=== PATIENT | female | born 1975 | race African-American/Black ===

== ENCOUNTER 2016-09-26 16:28 | Emergency (ER) | payer OTHER ==
--- NOTE | ~2016-09-26 | CR282 ---
[facility]. [facility] A Service of [facility] & [facility] RADIOLOGY TEXT RESULTS PATIENT: REDDY GO LOCATION: SED : 71 UNIT #: [id number] AGE: [address]: Ruby Fox APRN SEX: F ORDER DR: [id number] [place] [id number] E MR#: [id number] Acc #: [id number] NAME: REDDY GO : 1975 SEX: F STUDY DATE/TIME: 09/26/2016 16:23 UNIT: SED ROOM: STUDY DESCRIPTION: CR Wrist Min 3 View Rt Attending Physician: Ruby Fox A.P.R.N. Ordering Physician: Ruby Fox A.P.R.N. MEDICAL IMAGING REPORT This report is preliminary unless electronic signature is present. EXAM Right wrist 3 views HISTORY Wrist pain for 2 days. No injury. FINDINGS Wrist evaluation in multiple projections shows normal mineralization of the bony structures about the wrist and satisfactory articular relationship of the radius and ulna to the proximal carpal row and of the distal carpal segments to the metacarpal bases. There is no indication of fracture or dislocation, and no soft tissue radiopaque foreign body is present. No congenital defects are apparent. IMPRESSION Normal wrist. Dictated by... Reji Cobos M.D. THIS IS AN ELECTRONICALLY VERIFIED REPORT Reji Cobos M.D. at 09/28/2016 3:28 PM DFL/saleem TD: 09/27/2016 07:11 JOB #: [id number] MEDICAL IMAGING REPORT
[~2016-09-26 16:28] MED LIST: BACTRIM DS TABL1 TA1 PO; BENTYL20 M1 PO; DOCUSATE SODIU100 MG PO; FLAGYL PO; HYDROCODON-ACE1 EA12 PO; IBUPROFEN600 MG PO; LACTULOSE10 G/15 M1 PO; LACTULOSE10 G/15 M4 PO; LORTAB 5/500 TA1 TA2 PO; LORTAB 7.5-3251 EACH PO; NAPROSYN-EC500 M1 PO; NAPROXEN PO; NO MEDICATIONS; PREDNISONE PO; PYRIDIUM PO; VOLTAREN75 MG PO; ZITHROMAX PO; ZOFRAN ODT4 MG PO; ZOFRAN2 MG/M1 PO
[2016-10-19] MEDS ORDERED: NO MEDICATIONS (07:39)
== END 2016-09-26 17:50 | disposition home or self-care (01) ==
LOC: SED 16:28
DX: M77.9 Enthesopathy, unspecified (principal); Z88.1 Allergy status to other antibiotic agents; Z88.0 Allergy status to penicillin
CPT/HCPCS: 29125; 73110; 99283

== ENCOUNTER 2016-10-19 07:45 | Emergency (ER) | payer OTHER ==
--- NOTE | ~2016-10-19 | CT4 ---
[facility] A Service of [facility] & [facility] RADIOLOGY TEXT RESULTS PATIENT: REDDY GO LOCATION: SED : 71 UNIT #: [id number] AGE: [address]: Mirza Cox MD SEX: F ORDER DR: [id number] [address] [address] [id number] E MR#: [id number] Acc #: [id number] NAME: REDDY GO : 1975 SEX: F STUDY DATE/TIME: 10/19/2016 8:39 UNIT: SED ROOM: STUDY DESCRIPTION: CT Abd and Pelv Wo Cont Attending Physician: Mirza Cox M.D. Ordering Physician: Mirza Cox M.D. Primary Care Physician: Primary Care Physician No MEDICAL IMAGING REPORT This report is preliminary unless electronic signature is present. EXAM CT abdomen and pelvis without contrast INDICATION Stomach pain and bleeding for 3 days. Patient reports it is in the left lower quadrant. She also apparently has had vaginal bleeding which is abnormal for her. TECHNIQUE Axial CT images were obtained from the dome of the diaphragm through the symphysis pubis. No oral or intravenous contrast material was administered. This CT examination was performed with one or more of the following radiation dose reduction techniques: automatic exposure control, adjustment of mA and/or kV according to patient size, and iterative reconstruction. FINDINGS Images through the lung bases are clear. Liver, gallbladder appear normal. Right kidney and adrenal glands, as well as the spleen, stomach, proximal small bowel and pancreas are all normal. 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 Appendix is not clearly identified but I do not see a dilated tubular structure or soft tissue stranding within the right lower quadrant to suggest acute appendicitis. Uterus appears unremarkable for a 40-year-old woman. No hydronephrosis of the pelvic kidney is seen. There is a right ovarian cyst measuring up to 3.9 x 3.0 cm. There is a small amount of free fluid seen within the pelvis but this certainly can be a normal finding in a 40-year-old woman. No aggressive osseous abnormalities are seen. There is no evidence of mechanical bowel obstruction. A fairly extensive fecal burden is seen throughout the colon. Correlation with any history of constipation is recommended. IMPRESSION. 1. 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 There is no evidence of obstruction. [facility] A Service of [facility] RADIOLOGY TEXT RESULTS PATIENT: REDDY GO LOCATION: [facility] : 71 UNIT #: [id number] AGE: [address]: Mirza Cox MD SEX: F ORDER DR: 2. Patient does have a fairly extensive fecal burden seen throughout the colon. Correlation with any history of constipation is recommended. 3. Right ovarian cyst measuring up to 3.9 x 3 cm. Suggest a followup pelvic ultrasound in 6 weeks to document resolution or stability. Please see the body of the report for any other additional incidental findings. Dictated by... Jerrica Cerrato M.D. THIS IS AN ELECTRONICALLY VERIFIED REPORT Jerrica Cerrato M.D. at 10/19/2016 3:45 PM TANJA/saleem TD: 10/19/2016 12:05 JOB #: [id number] MEDICAL IMAGING REPORT Page 1 of 1
[2016-10-19 08:15] LABS: BASOPHIL# 0.1 X10e3 (0-0.3); DIFF IND NO; EOSINOPHIL# 0.1 X10e3 (0-0.7); EOSINOPHIL% 1.9 % (0.0-7.0); HEMATOCRIT 33.2 % (35.0-45.0); LYMPHOCYTE# 0.5 X10e3 (1.0-3.5); LYMPHOCYTE% 9.5 % (17.0-45.0); MEAN CELL VOLUME 91.8 FL (83-96); MEAN CORPUSCULAR HEMOGLOBIN 30.3 PG (28-34); MEAN PLATELET VOLUME 8.4 FL (6.5-11.5); MONOCYTE# 0.6 X10e3 (0-1.0); NEUTROPHIL# 4.3 X10e3 (1.5-7.1); NEUTROPHIL% 75.6 % (40-75); PLATELET COUNT 225 X10e3 (140-420); RED BLOOD COUNT 3.62 X10e (3.90-5.30); RED CELL DISTRIBUTION WIDTH 14.1 % (11.0-15.5); WHITE BLOOD COUNT 5.7 X10e3 (4.0-10.5)
[2016-10-19 08:40] LABS: BILIRUBIN, DIRECT 0.1 mg/dL (0.0-0.2); BILIRUBIN,INDIRECT 0.4 mg/dL (0.0-0.9); BILIRUBIN,TOTAL 0.5 mg/dL (0.2-2.0); BUN/CREATININE RATIO 11.66; CALCIUM SERUM 8.7 mg/dL (8.4-10.2); CREATININE SERUM 0.6 mg/dL (0.6-1.4); GLOM FILT RATE Estimated 130.3 mL/min (>60); POTASSIUM 3.4 mmol/L (3.5-5.1); PROTEIN TOTAL SERUM 6.8 g/dL (6.0-8.3)
[2016-10-19 09:11] LABS: URINE SOURCE CLEAN CATCH
[2016-10-19 09:13] LABS: URINE APPEARANCE TURBID; URINE BILIRUBIN POS (NEG); URINE BLOOD 3+ (NEG); URINE COLOR RED; URINE GLUCOSE NEG (NORM); URINE KETONE TRACE (NEG); URINE LEUKOCYTE ESTERASE NEG (NEG); URINE NITRATE POS (NEG); URINE PH 6.5 (5-8); URINE PROTEIN 3+ (NEG); URINE SPECIFIC GRAVITY >=1.030 (1.003-1.035)
[2016-10-19 09:14] LABS: MICRO INDICATED? YES
[2016-10-19 09:17] LABS: URINE RBC INNUM /[HPF] (0-2)
[2016-10-19 09:18] LABS: CULTURE INDICATED? YES; URINE BACTERIA 4+ (NEG); URINE SQUAMOUS EPITHELIAL CELL MANY /[HPF]; URINE WBC 100-200 /[HPF] (0-5)
== END 2016-10-19 09:20 | disposition home or self-care (01) ==
LOC: SED 07:45
PROVIDERS: Emergency Medicine
DX: N83.201 Unspecified ovarian cyst, right side (principal); Z88.0 Allergy status to penicillin
CPT/HCPCS: 36415; 74176; 80048; 80076; 81003; 82150; 83690; 84703; 85025; 87086; 99284

== ENCOUNTER 2016-11-15 20:53 | Emergency (ER) | payer OTHER ==
[2016-11-15 20:22] LABS: URINE SOURCE CLEAN CATCH
[2016-11-15 20:24] LABS: MICRO INDICATED? YES; URINE APPEARANCE CLEAR; URINE BILIRUBIN NEG (NEG); URINE BLOOD 3+ (NEG); URINE COLOR YELLOW; URINE GLUCOSE NEG (NORM); URINE KETONE NEG (NEG); URINE LEUKOCYTE ESTERASE NEG (NEG); URINE NITRATE NEG (NEG); URINE PH 6.5 (5-8); URINE PROTEIN TRACE (NEG); URINE UROBILINOGEN 0.2 MG/DL (NORM)
[2016-11-15 20:25] LABS: CULTURE INDICATED? NO; URINE BACTERIA NEG (NEG); URINE MUCUS PRESENT; URINE SQUAMOUS EPITHELIAL CELL OCCAS /[HPF]; URINE TRANSITIONAL EPI CELLS FEW /[HPF]
== END 2016-11-16 20:42 | disposition home or self-care (01) ==
LOC: SED 20:53
PROVIDERS: Physician Assistant
DX: N83.209 Unspecified ovarian cyst, unspecified side (principal); R10.2 Pelvic and perineal pain; F17.200 Nicotine dependence, unspecified, uncomplicated; Z88.0 Allergy status to penicillin
CPT/HCPCS: 81003; 84703; 99282; 99284